=== PATIENT | female | born 1980 | race Caucasian/White ===

== ENCOUNTER 2020-08-05 12:30 | Emergency (ER) | payer OTHER ==
[2020-08-05] MEDS ORDERED: MECLIZINE HCL 12.5 MG TAB ONE (15:30)
[2020-08-05] MEDS ORDERED: NA CHLORIDE 0.9% 1,000 ML ONE (15:30)
--- NOTE | 2020-08-05 15:32 | RAD REPORT ---
EXAM DESCRIPTION: CT - Head Brain Wo Cont - 08/05/2020 3:14 pm CLINICAL HISTORY: DIZZINESS Headache, drowsiness COMPARISON: No comparisons TECHNIQUE: All CT scans are performed using dose optimization technique as appropriate and may inclu de automated exposure control or mA/KV adjustment according to patient size. FINDINGS: No intracranial hemorrhage, hydrocephalus or extra-axial fluid collection.No areas of brai n edema or evidence of midline shift. The paranasal sinuses and mastoids are clear. The calvarium is intact. IMPRESSION: No acute intracranial abnormality.
[2020-08-05 15:36] LABS: Absolute Lymphocytes (CBC) 2.2 K/uL (0.7-4.9); Basophils % 1.1 % (0-1.3); Lymphocytes % 31.6 % (15.3-44.8); RBC Red Blood Cell Count 3.77 M/uL (3.86-4.86)
[2020-08-05 15:55] LABS: ALT/SGPT 22 U/L (12-78); AST/SGOT 16 U/L (15-37); Albumin 3.9 g/dL (3.4-5.0); Alkaline Phosphatase 77 U/L (45-117); BUN Blood Urea Nitrogen 12 mg/dL (7-18); Bicarbonate 27 mmol/L (21-32); Bilirubin Direct < 0.1 mg/dL (0-0.2); Bilirubin Total 0.3 mg/dL (0.2-1.0); Creatine Phosphokinase 210 U/L (26-192); Glucose Level 84 mg/dL (74-106); Protein, Total 7.3 g/dL (6.4-8.2); Sodium Level 141 mmol/L (136-145)
--- NOTE | 2020-08-05 16:28 | ER ---
Nurse's Notes [facility] Name: Estrellita Lopez Age: 40 yrs Sex: Female : 1980 Arrival Date: 08/05/2020 Time: 12:36 Bed 16 Private MD: Diagnosis: Dizziness Presentation: 08/05 12:59 Chief complaint: Patient states: generalized weakness for 1 week, works outside and em gave blood 3 weeks ago, and started menstrual cycle, some nausea and diarrhea, denies fever, denies pain. Coronavirus screen: Client denies travel out of the [place] in the last 14 days. Ebola Screen: Patient negative for fever greater than or equal to 101.5 degrees Fahrenheit, and additional compatible Ebola Virus Disease symptoms Patient denies exposure to infectious person. Patient denies travel to an Ebola-affected area in the 21 days before illness onset. No symptoms or risks identified at this time. Risk Assessment: Do you want to hurt yourself or someone else? Patient reports no desire to harm self or others. 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 - Social history:: Smoking status: Patient reports the use of cigarette tobacco products, smokes one pack cigarettes per day. Screenin:59 Abuse screen: Denies threats or abuse. Nutritional screening: No deficits noted. tw2 Tuberculosis screening: No symptoms or risk factors identified. Fall Risk None identified. Assessment: 14:01 General: Appears in no apparent distress. Behavior is calm, cooperative, appropriate tw2 for age. Pain: Complains of pain in abdomen. Neuro: Level of Consciousness is awake, alert, obeys commands, Oriented to person, place, time, situation. Cardiovascular: Patient's skin is warm and dry. Respiratory: Airway is patent Respiratory effort is even, unlabored, Respiratory pattern is regular, symmetrical. GI: Reports nausea, vomiting. : No signs and/or symptoms were reported regarding the genitourinary system. Derm: No signs and/or symptoms reported regarding the dermatologic system. Musculoskeletal: Range of motion: intact in all extremities. 15:47 Reassessment: Patient appears in no apparent distress at this time. No changes from tw2 previously documented assessment. Patient and/or family updated on plan of care and expected duration. Pain level reassessed. Patient is alert, oriented x 3, equal unlabored respirations, skin warm/dry/pink. Vital Signs: 12:59 BP 139 / 82; Pulse 83; Resp 16; Temp 98.4(O); Pulse Ox 100% on R/A; Weight 86.18 kg; em Height 5 ft. 6 in. (167.64 cm); Pain 0/10; 14:15 BP 125 / 81; Pulse 62; Resp 17; Pulse Ox 99% on R/A; tw2 15:15 BP 123 / 77; Pulse 66; Resp 17; Pulse Ox 99% on R/A; tw2 16:38 BP 119 / 74; Pulse 61; Resp 17; Pulse Ox 99% on R/A; tw2 12:59 Body Mass Index 30.67 (86.18 kg, 167.64 cm) em ED Course: 12:25 Inserted saline lock: 20 gauge in left antecubital area, using aseptic technique. Blood tw2 collected. 12:36 Patient arrived in ED. mr 13:02 Triage completed. em 13:02 Arm band placed on. em 13:59 Mary Gutierrez, RN is Primary Nurse. tw2 14:00 Bed in low position. Call light in reach. Adult w/ patient. Pulse ox on. NIBP on. tw2 14:45 Dragan Bee PA is PHCP. jr8 14:45 Brendan Chakraborty MD is Attending Physician. jr8 15:14 CT Head Brain wo Cont In Process Unspecified. EDMS 16:35 No provider procedures requiring assistance completed. tw2 16:36 IV discontinued, intact, bleeding controlled, No redness/swelling at site. Pressure tw2 dressing applied. Administered Medications: 15:25 Drug: NS 0.9% 1000 ml Route: IV; Rate: 1000 ml; Site: left antecubital; tw2 16:35 Follow up: Response: No adverse reaction; IV Status: Completed infusion; IV Intake: tw2 1000ml 15:25 Drug: Meclizine 25 mg Route: PO; tw2 16:35 Follow up: Response: No adverse reaction tw2 Intake: 16:35 IV: 1000ml; Total: 1000ml. tw2 Outcome: 16:28 Discharge ordered by MD. cantrell 16:36 Discharged to home ambulatory, with significant other. tw2 16:36 Condition: stable 16:36 Discharge instructions given to patient, significant other, Instructed on discharge instructions, follow up and referral plans. medication usage, Demonstrated understanding of instructions, follow-up care, medications, Prescriptions given X 1. 16:38 Patient left the ED. tw2 Signatures: Dispatcher [employer] Daniella Handley mr ArdonAlex, RN RN Dragan Soto PA PA jr8 Wise, Tara, RN RN tw2
--- NOTE | 2020-08-05 16:28 | EDPHYS ---
Physician Documentation [facility] Name: Estrellita Lopez Age: 40 yrs Sex: Female : 1980 Arrival Date: 08/05/2020 Time: 12:36 Bed 16 Private MD: ED Physician Brendan Chakraborty HPI: 08/05 15:51 This 40 yrs old Female presents to ER via Ambulatory with complaints of jr8 Dizziness. 15:51 The patient presents with feeling off balance. Onset: The symptoms/episode jr8 began/occurred gradually, 2 day(s) ago. Context: occurred at work. Modifying factors: The symptoms are alleviated by holding head still, lying down, the symptoms are aggravated by standing up, changing position. Associated signs and symptoms: Pertinent positives: fatigue. Severity of symptoms: At their worst the symptoms were mild in the emergency department the symptoms are unchanged. Patient's baseline: Neuro: alert and fully oriented, Motor: no deficits, Ambulation: walks without assistance, Speech: normal. The patient has not experienced similar symptoms in the past. The patient has not recently seen a physician. Patient stated that she has been working a lot outside but staying hydrated. Stated that she recently gave blood within past week and now on menstrual cycle. Stated that she has been feeling fatigued and off balanced for past few days. Not resolving . 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 - Social history:: Smoking status: Patient reports the use of cigarette tobacco products, smokes one pack cigarettes per day. ROS: 15:51 Eyes: Negative for injury, pain, redness, and discharge, ENT: Negative for injury, jr8 pain, and discharge, Neck: Negative for injury, pain, and swelling, Cardiovascular: Negative for chest pain, palpitations, and edema, Respiratory: Negative for shortness of breath, cough, wheezing, and pleuritic chest pain, Abdomen/GI: Negative for abdominal pain, nausea, vomiting, diarrhea, and constipation, Back: Negative for injury and pain, MS/Extremity: Negative for injury and deformity, Skin: Negative for injury, rash, and discoloration. 15:51 Neuro: Positive for dizziness, weakness. Exam: 15:51 Eyes: Pupils equal round and reactive to light, extra-ocular motions intact. Lids and jr8 lashes normal. Conjunctiva and sclera are non-icteric and not injected. Cornea within normal limits. Periorbital areas with no swelling, redness, or edema. ENT: Nares patent. No nasal discharge, no septal abnormalities noted. Tympanic membranes are normal and external auditory canals are clear. Oropharynx with no redness, swelling, or masses, exudates, or evidence of obstruction, uvula midline. Mucous membranes moist. Neck: Trachea midline, no thyromegaly or masses palpated, and no cervical lymphadenopathy. Supple, full range of motion without nuchal rigidity, or vertebral point tenderness. No Meningismus. Cardiovascular: Regular rate and rhythm with a normal S1 and S2. No gallops, murmurs, or rubs. Normal PMI, no JVD. No pulse deficits. Respiratory: Lungs have equal breath sounds bilaterally, clear to auscultation and percussion. No rales, rhonchi or wheezes noted. No increased work of breathing, no retractions or nasal flaring. Abdomen/GI: Soft, non-tender, with normal bowel sounds. No distension or tympany. No guarding or rebound. No evidence of tenderness throughout. Back: No spinal tenderness. No costovertebral tenderness. Full range of motion. Skin: Warm, dry with normal turgor. Normal color with no rashes, no lesions, and no evidence of cellulitis. MS/ Extremity: Pulses equal, no cyanosis. Neurovascular intact. Full, normal range of motion. Neuro: Awake and alert, GCS 15, oriented to person, place, time, and situation. Cranial nerves II-XII grossly intact. Motor strength 5/5 in all extremities. Sensory grossly intact. Cerebellar exam normal. Normal gait. Vital Signs: 12:59 BP 139 / 82; Pulse 83; Resp 16; Temp 98.4(O); Pulse Ox 100% on R/A; Weight 86.18 kg; em Height 5 ft. 6 in. (167.64 cm); Pain 0/10; 14:15 BP 125 / 81; Pulse 62; Resp 17; Pulse Ox 99% on R/A; tw2 15:15 BP 123 / 77; Pulse 66; Resp 17; Pulse Ox 99% on R/A; tw2 16:38 BP 119 / 74; Pulse 61; Resp 17; Pulse Ox 99% on R/A; tw2 12:59 Body Mass Index 30.67 (86.18 kg, 167.64 cm) em MDM: 14:45 Patient medically screened. 8 16:27 Data reviewed: vital signs, nurses notes, lab test result(s), EKG, radiologic studies, jr8 CT scan. Data interpreted: Pulse oximetry: on room air is 99 %. Interpretation: normal. Counseling: I had a detailed discussion with the patient and/or guardian regarding: the historical points, exam findings, and any diagnostic results supporting the discharge/admit diagnosis, lab results, radiology results, the need for outpatient follow up, a family practitioner, to return to the emergency department if symptoms worsen or persist or if there are any questions or concerns that arise at home. Response to treatment: the patient's symptoms have markedly improved after treatment, patient is well hydrated. 08/05 14:59 Order name: CBC with Diff; Complete Time: 15:51 [facility] 08/05 14:59 Order name: Basic Metabolic Panel; Complete Time: 16:25 [facility] 08/05 14:59 Order name: LFT's; Complete Time: 16:25 [facility] 08/05 14:59 Order name: CK; Complete Time: 16:25 8 08/05 16:31 Order name: Urine Dipstick-Ancillary; Complete Time: 21:04 [facility] 08/05 16:36 Order name: Urine --Ancillary (enter results) bd 08/05 14:59 Order name: IV; Complete Time: 15:31 [facility] 08/05 14:59 Order name: CT Head Brain wo Cont; Complete Time: 15:51 [facility] 08/05 14:59 Order name: Urine Test (obtain specimen); Complete Time: 16:35 8 08/05 14:59 Order name: Urine Dipstick-Ancillary (obtain specimen); Complete Time: 16:35 [facility] 08/05 14:59 Order name: EKG - Nurse/Tech; Complete Time: 15:31 8 08/05 14:59 Order name: EKG; Complete Time: 15:00 Administered Medications: 15:25 Drug: NS 0.9% 1000 ml Route: IV; Rate: 1000 ml; Site: left antecubital; tw2 16:35 Follow up: Response: No adverse reaction; IV Status: Completed infusion; IV Intake: tw2 1000ml 15:25 Drug: Meclizine 25 mg Route: PO; tw2 16:35 Follow up: Response: No adverse reaction tw2 Disposition: 08/06 06:18 Co-signature as Attending Physician, Brendan Chakraborty MD I agree with the assessment and kdr plan of care. Disposition: 08/05/20 16:28 Discharged to Home. Impression: Dizziness. - Condition is Stable. - Discharge Instructions: Dizziness. - Prescriptions for Meclizine 25 mg Oral Tablet - take 1 tablet by ORAL route every 8 hours As needed; 30 tablet. - Medication Reconciliation Form, Thank You Letter, Antibiotic Education, Prescription Opioid Use, Work release form form. - Follow up: Private Physician; When: 2 - 3 days; Reason: Recheck today's complaints, Continuance of care, Re-evaluation by your physician. - Problem is new. - Symptoms have improved. Signatures: Dispatcher [employer] EDBrendan Meek MD MD kdr Alex Ardon, RN RN em Dragan Bee PA PA jr8 Mary Gutierrez RN RN tw2 Corrections: (The following items were deleted from the chart) 08/05 16:38 16:28 08/05/2020 16:28 Discharged to Home. Impression: Dizziness. Condition is Stable. tw2 Forms are Medication Reconciliation Form, Thank You Letter, Antibiotic Education, Prescription Opioid Use. Follow up: Private Physician; When: 2 - 3 days; Reason: Recheck today's complaints, Continuance of care, Re-evaluation by your physician. Problem is new. Symptoms have improved. jr8
[2020-08-05 16:31] LABS: Urine Blood Negative (Negative); Urine Glucose Negative (Negative); Urine Protein Negative (Negative); Urine Specific Gravity 1.015 (1.005-1.030)
[2020-08-05 17:13] VITALS: O2SAT 99
[2020-08-05 17:15] VITALS: TEMP 98.4
[2020-08-05 17:18] VITALS: BP 119/74
[2020-08-05 22:12] LABS: Urine Specific Gravity/Preg 1.015 (1.005-1.030)
== END 2020-08-05 16:38 | disposition home or self-care (01) ==
LOC: ER 12:30
DX: R42 Dizziness and giddiness (principal); R53.1 Weakness; F17.210 Nicotine dependence, cigarettes, uncomplicated
CPT/HCPCS: 93005; 85025; 80048; 36415; 82550; 81025; 80076; 81003; 70450; 96360; 99284; J7030